=== PATIENT | male | born 1995 | race Caucasian/White ===

== ENCOUNTER 2019-12-20 23:46 | Emergency (ER) | payer OTHER ==
[~2019-12-20] VITALS: Ht 182.9 cm; Wt 86.2 kg
[~2019-12-20 23:46] MED LIST: KEFLEX500 MG PO; NAPROSYN500 MG PO; NORCO 5-325 TA1 EACH PO
[2019-12-21] MEDS ORDERED: BACTRIM DS TAB1 EAC1 PO (00:16)
[2019-12-21 00:44] VITALS: BP 123/94
== END 2019-12-21 00:44 | disposition home or self-care (01) ==
LOC: M.ERS 23:46
DX: L02.11 Cutaneous abscess of neck (principal)